=== PATIENT | female | born 1995 | race Caucasian/White ===

== ENCOUNTER 2016-06-27 08:26 | Emergency (ER) | payer BC ==
[~2016-06-27] VITALS: Ht 152.4 cm; Wt 59.8 kg
[~2016-06-27 08:26] MED LIST: ALBU18002 INH; BCPILLS PO
[2016-06-27 08:38] VITALS: TEMP 36.6; Ht 152.4 cm; Wt 59.8 kg
--- NOTE | 2016-06-27 09:27 | EMERGENCY ROOM VISIT NOTE ---
History Report prepared by Darvin: Keira Mayen Under the Supervision of: Dr. Aaron Lehman M.D. First contact with patient: 08:48 Chief Complaint: BACK PAIN Stated Complaint: TAILBONE PAIN History of Present Illness The patient is a 20 year old female who presents to the Emergency Room with complaints of constant aching back pain beginning 8 days ago. The patient states that she fell down the stairs 8 days ago onto her back and her pain has worsened over the last 2 days since she tried to work out. She notes that her pain is worse with movement and better with laying on side. The patient has been taking ibuprofen without relief. She notes that she has a history of a stress fracture of her back 7 years ago and has not had problems since then. She denies any Incontinence, urinary symptoms, abdominal pain, numbness, weakness, tingling, and saddle anesthesia. She rates her pain as a 5/10 in severity. Source of History: patient Onset: 8 days ago Position: back Symptom Intensity: 5/10 Quality: ache Timing: constant Modifying Factors (Worsening): movement Modifying Factors (Relieving): other (laying on side) Associated Symptoms: No abdominal pain, No numbness, No urinary symptoms, No weakness Note: She denies any Incontinence, tingling, and saddle anesthesia. Review of Systems All systems have been listed, reviewed, and are negative other than those previously mentioned. Please see Additional Medical History Sheet. Past Medical & Surgical Surgical Problems: (1) Hx of wisdom tooth extraction Family History Patient reports no known family medical history. Social History Smoking Status: Never Smoker Smokeless Tobacco Use: No Alcohol Use: occasionally Drug Use: none Marital Status: single Housing Status: lives with roommate Occupation Status: student Current/Historical Medications Scheduled Control Pills ( Control Pills), 1 TAB PO DAILY Scheduled PRN Albuterol Sulfate (Proair Respiclick), 2 PUFFS INH UD PRN for Prior to Exercise/ SOB Allergies Coded Allergies: No Known Allergies (Unverified , 06/27/16) Physical Exam Vital Signs Date Time Temp Pulse Resp B/P Pulse Ox O2 Delivery O2 Flow Rate FiO2 06/27/16 10:54 73 16 117/80 99 06/27/16 09:58 66 20 112/56 98 Room Air 06/27/16 08:38 36.6 64 18 136/65 98 Room Air Physical Exam GENERAL: Patient awake, alert, oriented x 3. Patient follows commands. Patient does not appear toxic. Patient is adequately hydrated and well- nourished. SKIN: No erythema, pallor, cyanosis or rash HEENT: Normal head, pupils equal, reactive to light and accommodation. Ears normal. Oral cavity and posterior pharynx appear normal. Neck: Without adenopathy, no neck vein distention. LUNGS: Clear to auscultation. No wheezes, no rales, no rhonchi. HEART: No murmurs. No gallops. No rubs ABDOMEN: No masses, no rebound, no hepatomegaly or splenomegaly. BACK: Tenderness to palpation at L5, S1, no point tenderness at paraspinal muscles, full extension flexion and lateral bend. Positive straight leg raise bilaterally. EXTREMITIES: No signs of trauma. No pedal or pretibial edema. No calf or thigh tenderness. NEUROLOGIC: Cranial nerves II-XII within normal limits. No gross motor sensory function deficits. Achilles and patellar reflexes 2+ bilaterally. Strength 5/5 LE. Medical Decision & Procedures ER Provider Diagnostic Interpretation: X ray results are stated below per my interpretation and the radiologist's interpretation. L-SPINE MIN 4 VIEWS ROUTINE, SACRUM ONLY FINDINGS: 5 views of the lumbar spine and 2 views of the sacrum were submitted. No fracture or subluxation within the lumbar spine. The sacrum appears intact. Disc spaces are preserved. Presacral soft tissues are within normal limits. IMPRESSION: No fractures within the lumbar spine or sacrum. Electronically signed by: Isaias Martin M.D. 06/27/2016 10:11 AM Dictated Date/Time: 06/27/2016 10:09 AM ED Course 0848: Past medical records reviewed. The patient was evaluated in room B9. A complete history and physical examination was performed. 1029: I reevaluated the patient, she is resting comfortably. 1037: Upon reevaluation, the patient appeared to have improvement of her symptoms. I discussed today's findings with the patient. She verbalized agreement of the treatment plan. The patient was discharged home. Medical Decision Differential diagnosis includes strain, disc herniation, fracture, spondylolisthesis, cauda equina, spinal infection. X-rays of the lumbar and sacral spine were obtained. No fractures, dislocations or subluxations were noted. I believe the patient has a contusion which will heal with time. The patient was encouraged continued taking ibuprofen. Impression Primary Impression: Contusion of lower back Scribe Attestation The scribe's documentation has been prepared under my direction and personally reviewed by me in its entirety. I confirm that the note above accurately reflects all work, treatment, procedures, and medical decision making performed by me. Departure Information Dispostion Home / Self-Care Referrals No Doctor, Assigned (PCP) Forms HOME CARE DOCUMENTATION FORM, IMPORTANT VISIT INFORMATION Patient Instructions My [facility] Additional Instructions 600 mg ibuprofen every 6 hours until pain has resolved. Limited activity and stress on your lower back. Follow-up at [facility] in 2 weeks if pain has not resolved.
--- NOTE | 2016-06-27 10:13 | DIAGNOSTIC IMAGING REPORT ---
L-SPINE MIN 4 VIEWS ROUTINE, SACRUM ONLY CLINICAL HISTORY: fell 1 week ago hit back COMPARISON STUDY: None. FINDINGS: 5 views of the lumbar spine and 2 views of the sacrum were submitted. No fracture or subluxation within the lumbar spine. The sacrum appears intact. Disc spaces are preserved. Presacral soft tissues are within normal limits. IMPRESSION: No fractures within the lumbar spine or sacrum. Electronically signed by: Isaias Martin M.D. 06/27/2016 10:11 AM Dictated Date/Time: 06/27/2016 10:09 AM
[2016-06-27 10:54] VITALS: BP 117/80; PULSE 73; O2SAT 99
== END 2016-06-27 10:55 | disposition home or self-care (01) ==
LOC: C.EDB 08:27
DX: S30.0XXA Contusion of lower back and pelvis, initial encounter (principal); W10.9XXA Fall (on) (from) unspecified stairs and steps, initial encounter; Z79.3 Long term (current) use of hormonal contraceptives